=== PATIENT | male | born 1955 | race Caucasian/White ===

== ENCOUNTER 2019-04-14 19:38 | Emergency (ER) | payer OTHER ==
[~2019-04-14] VITALS: Ht 170.2 cm; Wt 79.4 kg
[2019-04-14 19:38] VITALS: BP_SYST 164
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
--- NOTE | 2019-04-14 19:38 | NUR ---
Patient to ER bed 2 to gown for evaluation. Side rails up.
--- NOTE | 2019-04-14 20:55 | NUR ---
Dr. Lima at bedside.
[2019-04-14] MEDS ORDERED: ACETAMINOPHEN 325 MG TABLET PO ONE (21:00)
--- NOTE | 2019-04-14 21:09 | NUR ---
Pt to CT via stretcher in stable condition, C-collar in place, accompanied by pt.s son.
--- NOTE | 2019-04-14 21:22 | NUR ---
Pt returns from CT.
--- NOTE | 2019-04-14 22:02 | NUR ---
Dr. Lima at bedside to update on POC.
--- NOTE | 2019-04-14 22:25 | NUR ---
Patient given written and verbal discharge instructions and verbalizes understanding. ER MD Dr. Lima discussed with patient the results and treatment provided. Patient in stable condition. ID arm band removed. Patient educated on pain management and to follow up with PMD. Pain Scale 0/10. Opportunity for questions provided and answered. Medication side effect fact sheet provided.
[2019-04-14 22:55] VITALS: BP_SYST 131
== END 2019-04-14 22:25 | disposition home or self-care (01) ==
LOC: SED 19:38
DX: S16.1XXA Strain of muscle, fascia and tendon at neck level, initial encounter (principal); E11.9 Type 2 diabetes mellitus without complications; I10 Essential (primary) hypertension; Z85.46 Personal history of malignant neoplasm of prostate; V43.63XA Car passenger injured in collision with pick-up truck in traffic accident, initial encounter; Y93.89 Activity, other specified; Y92.413 State road as the place of occurrence of the external cause; Y99.8 Other external cause status
CPT/HCPCS: 70450-TC; 72125-TC; 99284